=== PATIENT | male | born 1940 | race Caucasian/White ===

== ENCOUNTER → 2018-05-19 | Day surgery (SDC) | payer MEDICARE ==
--- NOTE | 2018-05-18 14:04 | Diagnostic Imaging Report ---
EXAMINATION: CHEST 2 VIEWS INDICATION: Pre-admit COMPARISON: None FINDINGS: TUBES and LINES: Left sided single lead pacer device with tip overlying the right ventricle. LUNGS: Moderate lung volumes. Patchy left basilar opacity. No evidence of pulmonary edema. PLEURA: No pleural effusion or pneumothorax. HEART AND MEDIASTINUM: The cardiomediastinal silhouette is unremarkable. BONES AND SOFT TISSUES: No acute osseous lesion. Soft tissues are unremarkable. UPPER ABDOMEN: No free air under the diaphragm. IMPRESSION: Patchy left basilar opacity, likely atelectasis. No evidence of lobar pneumonia or pulmonary edema. Signed by: Dr. Александр Horn MD on 05/18/2018 2:01 PM
[2018-05-18 14:23] LABS: BASOPHILS % 0.6 % (0.0-1.0); EOSINOPHILS # (AUTO) 0.1 (0.0-0.4); EOSINOPHILS % 1.1 % (0.0-6.0); HEMATOCRIT 36.8 % (38.2-49.6); HEMOGLOBIN 12.4 g/dL (14.0-18.0); LYMPHOCYTES % 28.9 % (18.0-39.1); MEAN CORPUSCULAR HEMOGLOBIN 33.6 pg (28-32); MEAN CORPUSCULAR HGB CONC 33.7 g/dL (31-35); MEAN CORPUSCULAR VOLUME 99.7 fL (81-99); MONOCYTES # (AUTO) 1.2 (0.2-0.8); MONOCYTES % 16.6 % (4.4-11.3); NEUTROPHILS # (AUTO) 3.6 (2.1-6.9); NEUTROPHILS % 50.9 % (38.7-80.0); PLATELET COUNT 291 x10e3/uL (140-360); RED BLOOD COUNT 3.69 x10e6/uL (4.3-5.7); RED CELL DISTRIBUTION WIDTH 14.4 % (11.7-14.4)
[2018-05-18 14:44] LABS: ANION GAP 19.3 mmol/L (8-16); CALCIUM 10.4 mg/dL (8.4-10.2); CREATININE, SERUM 3.46 mg/dL (0.72-1.25); POTASSIUM 3.3 mmol/L (3.5-5.1)
[~2018-05-19] MED LIST: ACETAMINOPHEN 1000 MG/100 ML IV ONE; ALLOPURINOL100 MG PO; ALLOPURINOL300 MG PO; CEFAZOLIN SOD 2 GM/D5W 50ML 50 ML IV ONE; DEXAMETHASONE SOD PHOS INJ 4 MG/ML VIAL ONE; FAMOTIDINE20 MG PO; FENOFIBRATE145 MG; FENTANYL CITRATE/PF 100MCG/2 ML INJ ONE; FUROSEMIDE40 MG PO; HYDROMORPHONE 2MG/ML 2 MG/ML ML ONE; IOPAMIDOL 610MG/1ML 300 MG/ML VIAL IV ONE; LOVASTATIN20 MG; MORPHINE SULFATE 2 MG/ML SYR ONE; NIFEDIPINE10 MG PO; ONDANSETRON HCL INJ 2 MG/ML VIAL ONE; PROPOFOL IV EMULSION 10 MG/ML 20 ML VIAL ONE; SEVOFLURANE INHAL SOLN 250 ML PEN BTL ONE; TAMSULOSIN HCL0.4 MG; XARELTO10 MG
[2018-05-19 12:45] VITALS: BP 136/81
--- NOTE | 2018-05-19 18:27 | Operative Report ---
DATE OF PROCEDURE: May 19, 2018 PREOPERATIVE DIAGNOSES: 1. Benign prostatic hypertrophy with obstruction. 2. Urinary tract infection. 3. Frequency of urination. POSTOPERATIVE DIAGNOSES: 1. Benign prostatic hypertrophy with obstruction. 2. Urinary tract infection. 3. Frequency of urination. OPERATIONS PERFORMED: 1. Cystoscopy and bilateral retrograde pyelograms under fluoroscopic control. 2. Interpretation of x-ray. Radiologist not present. 3. Supervision of fluoroscopy. Radiologist not present. 4. Removal of the prostate with a plasma system. TUBE WASHER: None. ANESTHESIA: General. CLINICAL INDICATION NOTE: A 77-year-old with significant voiding symptoms with frequency, history of UTI and hesitancy. He was brought for assessment of the upper tract as well as removal of the obstructing prostate. Patient was advised about the procedure and potential benefits and complications as well as postop care. DESCRIPTION OF PROCEDURE AND FINDINGS: After a proper level of anesthesia was achieved, the patient was placed in lithotomy position, prepped and draped in sterile fashion. Urethra inspected, unremarkable. Bladder outlet is obstructed by a trilobar prostate. Bladder is quite trabeculated. No tumor or foreign bodies identified in the bladder. Bilateral retrograde pyelograms were done under fluoroscopic control using a cone-tip catheter. No intrinsic lesions were identified. The drainage was prompt from both sides. Following this, the bladder was irrigated. Scope was removed. Resectoscope was inserted, and plasma system was used to remove the prostatic tissue. The midline lobe was removed first and then both lateral lobes. Any visible bleeding points were carefully coagulated, and following this the bladder was filled up with irrigation fluid. The scope was removed, and coude maneuver demonstrated good flow. A 22-Malagasy 3-way Kuo catheter was inserted, connected to continuous irrigation. Patient was transferred in satisfactory condition to recovery room, postop recommendations and orders given. Followup will be done, and Kuo will be removed in about 5 days. Job#: [id number] ROMI
== END | disposition home or self-care (01) ==
LOC: OR 08:20 → EDBD 10:30
PROVIDERS: ATTEND Urology
DX: N40.1 Benign prostatic hyperplasia with lower urinary tract symptoms (principal); N13.8 Other obstructive and reflux uropathy; R35.0 Frequency of micturition; Z95.0 Presence of cardiac pacemaker; G47.33 Obstructive sleep apnea (adult) (pediatric); Z87.440 Personal history of urinary (tract) infections; I12.9 Hypertensive chronic kidney disease with stage 1 through stage 4 chronic kidney disease, or unspecified chronic kidney disease; N18.9 Chronic kidney disease, unspecified; Z01.810 Encounter for preprocedural cardiovascular examination; Z01.812 Encounter for preprocedural laboratory examination; Z01.811 Encounter for preprocedural respiratory examination
CPT/HCPCS: 36415; 52005; 52601; 71046; 74420; 80048; 85025; 93005; C1758; J1100; J1170; J2270; J2405; Q9967